=== PATIENT | male | born 1965 | race African-American/Black ===

== ENCOUNTER 2017-04-18 12:08 | Emergency (ER) | payer MEDICAID ==
[~2017-04-18] VITALS: Ht 177.8 cm; Wt 84.0 kg
[2017-04-18] MEDS ORDERED: IPRATROPIUM BROMIDE (0.02%) 0.5MG/2.5ML NEB HHN STA (12:51)
[2017-04-18] MEDS ORDERED: METHYLPREDNISOLONE SOD SUCC 125 MG/2 ML VIAL IV STA (12:51)
[2017-04-18] MEDS ORDERED: ALBUTEROL (0.083%) 2.5MG/3ML NEB HHN SCH ×2 (13:00→15:00)
[2017-04-18] MEDS ORDERED: ALBUTEROL (0.083%) 2.5MG/3ML NEB ONE ×2 (13:07→14:47)
[2017-04-18 13:35] LABS: HEMATOCRIT. 51.2 % (42.0-52.0); HEMOGLOBIN. 17.3 g/dL (14.0-18.0); MEAN CORPUSCULAR HEMOGLOBIN 31.9 pg (28.0-32.0); MEAN CORPUSCULAR VOLUME 94.5 fL (80.0-94.0); MEAN PLATELET VOLUME 8.1 fl (7.4-10.4); PLATELET 227 x1000/uL (130-400); RED BLOOD CELL COUNT 5.42 mill/uL (4.7-6.1)
[2017-04-18 13:48] LABS: CARBON DIOXIDE 26 mEq/L (21-32); CHLORIDE 107 mEq/L (98-107); TROPONIN I < 0.02 ng/mL (0.00-0.04)
[2017-04-18 14:03] LABS: NUCLEATED RED BLOOD CELLS 1 /100 WBC; PLATELET ESTIMATE NORMAL
[2017-04-18 16:31] VITALS: BP 168/98
[2017-04-28] MEDS ORDERED: ALBU6.7H IH (22:51)
== END 2017-04-18 16:43 | disposition home or self-care (01) ==
LOC: ER 14:04 → ENRESERV 17:18 → CANRESERV 17:18 → CANBEDREQ 04-19 00:57
DX: J45.901 Unspecified asthma with (acute) exacerbation (principal); F14.10 Cocaine abuse, uncomplicated
CPT/HCPCS: 36415; 71010; 80053; 83880; 84484; 85025; 94640; 96374; 99291; J2930; J7611; Z7610

== ENCOUNTER 2017-04-25 20:24 | Emergency (ER) | payer MEDICAID ==
[~2017-04-25] VITALS: Ht 177.8 cm; Wt 84.0 kg
[2017-04-25] MEDS ORDERED: ALBUTEROL (0.083%) 2.5MG/3ML NEB HHN STA (20:36)
[2017-04-25] MEDS ORDERED: IPRATROPIUM BROMIDE (0.02%) 0.5MG/2.5ML NEB HHN STA (20:36)
[2017-04-25] MEDS ORDERED: METHYLPREDNISOLONE SOD SUCC 125 MG/2 ML VIAL IV STA (20:36)
[2017-04-25 20:37] VITALS: BP 153/101
[2017-04-25] MEDS ORDERED: SODIUM CHLORIDE 0.9% 1,000 ML IV ONE (20:37)
[2017-04-25] MEDS ORDERED: MAGNESIUM 2 G PREMIX 50 ML IV ONE (20:45)
[2017-04-25 21:08] LABS: HEMATOCRIT. 55.9 % (42.0-52.0); HEMOGLOBIN. 19.2 g/dL (14.0-18.0); MEAN CORPUSCULAR HEMOGLOBIN 32.7 pg (28.0-32.0); MEAN PLATELET VOLUME 8.2 fl (7.4-10.4); PLATELET 228 x1000/uL (130-400); RED BLOOD CELL COUNT 5.88 mill/uL (4.7-6.1); RED CELL DISTRIBUTION WIDTH 14.6 % (11.6-14.6)
[2017-04-25 21:12] LABS: CHLORIDE 106 mEq/L (98-107)
[2017-04-25 21:13] LABS: INR 1.1; PARTIAL THROMBOPLASTIN TIME 28.1 sec (23.4-31.0); PROTHROMBIN TIME 10.9 sec (9.4-11.6)
[2017-04-25 21:17] LABS: CARBON DIOXIDE 26 mEq/L (21-32)
[2017-04-25 21:21] LABS: TROPONIN I < 0.02 ng/mL (0.00-0.04)
[2017-04-25 21:24] LABS: PLATELET ESTIMATE NORMAL
[2017-04-25] MEDS ORDERED: LEVOFLOXACIN 500MG PREMIX 100 ML IV ONE (21:30)
[2017-04-28] MEDS ORDERED: ALBU6.7H IH (22:51)
== END 2017-04-25 22:53 | disposition left against medical advice (07) ==
LOC: ER 20:28 → EDBEDREQ 21:22 → CANRESERV 21:33 → ENRESERV 21:33 → CANBEDREQ 22:41 → ER 22:53
DX: J96.00 Acute respiratory failure, unspecified whether with hypoxia or hypercapnia (principal); J45.901 Unspecified asthma with (acute) exacerbation; F14.10 Cocaine abuse, uncomplicated; F17.200 Nicotine dependence, unspecified, uncomplicated
CPT/HCPCS: 36415; 71010; 80053; 83605; 83880; 84484; 85025; 85610; 85730; 87040; 93005; 94644; 96365; 96368; 96375; 99291; J1956; J2930; J3475; J7030; J7611; 96366

== ENCOUNTER 2017-06-20 09:50 | Emergency (ER) | payer MEDICAID ==
[~2017-06-20] VITALS: Ht 182.9 cm; Wt 90.0 kg
[~2017-06-20 09:50] MED LIST: ALBU6.7H IH; LEVO500T2 PO; TAM75 PO
[2017-06-20 09:54] VITALS: BP 160/98
== END 2017-06-20 13:31 | disposition left against medical advice (07) ==
LOC: ER 10:03
DX: R05 Cough (principal); Z53.21 Procedure and treatment not carried out due to patient leaving prior to being seen by health care provider

== ENCOUNTER 2017-07-30 11:11 | Emergency (ER) | payer MEDICAID ==
[~2017-07-30] VITALS: Ht 177.8 cm; Wt 75.0 kg
[~2017-07-30 11:11] MED LIST changes: -LEVO500T2 PO
[2017-07-30 11:12] VITALS: BP 136/76
[2017-07-30] MEDS ORDERED: METHYLPREDNISOLONE SOD SUCC 125 MG/2 ML VIAL IV STA (11:58)
[2017-07-30] MEDS ORDERED: IPRATROPIUM BROMIDE (0.02%) 0.5MG/2.5ML NEB HHN STA (11:58)
[2017-07-30] MEDS ORDERED: ALBUTEROL (0.083%) 2.5MG/3ML NEB HHN STA (11:58)
[2017-08-29] MEDS ORDERED: FLUT1AER IH (03:06)
== END 2017-07-30 13:22 | disposition left against medical advice (07) ==
LOC: ER 11:11
DX: J44.0 Chronic obstructive pulmonary disease with (acute) lower respiratory infection (principal); J20.9 Acute bronchitis, unspecified
CPT/HCPCS: 93005; 94640; 99283; J7611; Z7610; J2930

== ENCOUNTER 2017-08-06 09:59 | Emergency (ER) | payer MEDICAID ==
[~2017-08-06] VITALS: Ht 177.8 cm; Wt 82.0 kg
[2017-08-06 10:01] VITALS: BP 108/54
== END 2017-08-06 11:07 | disposition left against medical advice (07) ==
LOC: ER 10:55
DX: R06.02 Shortness of breath (principal); Z53.21 Procedure and treatment not carried out due to patient leaving prior to being seen by health care provider

== ENCOUNTER 2017-10-01 09:44 | Emergency (ER) | payer OTHER ==
[~2017-10-01] VITALS: Ht 177.8 cm; Wt 80.0 kg
[~2017-10-01 09:44] MED LIST changes: +FLUT1AER IH
[2017-10-01 10:20] VITALS: BP 122/77
[2017-10-01] MEDS ORDERED: DIPHENHYDRAMINE 25MG CAPSULE PO ONE (11:00)
== END 2017-10-01 11:13 | disposition home or self-care (01) ==
LOC: ER 10:27
DX: B35.4 Tinea corporis (principal); F17.200 Nicotine dependence, unspecified, uncomplicated
CPT/HCPCS: 99282; Q0163

== ENCOUNTER 2018-11-02 21:02 | Emergency (ER) | payer OTHER ==
[~2018-11-02] VITALS: Ht 157.5 cm; Wt 73.0 kg
[2018-11-03 00:48] VITALS: BP 128/73
== END 2018-11-03 01:20 | disposition home or self-care (01) ==
LOC: ER 21:02
DX: M70.21 Olecranon bursitis, right elbow (principal); M25.511 Pain in right shoulder; Y93.89 Activity, other specified
CPT/HCPCS: 99282; A4565

== ENCOUNTER 2018-11-21 16:58 | Inpatient (IN) | payer MEDICAID, OTHER ==
[~2018-11-21] VITALS: Ht 185.4 cm; Wt 72.1 kg
[2018-11-21] MEDS ORDERED: METHYLPREDNISOLONE SOD SUCC 125 MG/2 ML VIAL IV STA (17:23)
[2018-11-21] MEDS ORDERED: MAGNESIUM 2 G PREMIX 50 ML IV STA (17:23)
[2018-11-21] MEDS ORDERED: IPRATROPIUM BROMIDE (0.02%) 0.5MG/2.5ML NEB HHN STA (17:23)
[2018-11-21] MEDS ORDERED: ALBUTEROL (0.083%) 2.5MG/3ML NEB HHN STA (17:23)
[2018-11-21 18:23] LABS: BASOPHILS % 0.6 % (0.0-2.0); EOSINOPHILS % 10.2 % (0.0-5.0); HEMATOCRIT. 35.9 % (42.0-52.0); LYMPHOCYTES % 14.4 % (20.0-50.0); MEAN CORPUSCULAR HEMOGLOBIN 27.6 pg (28.0-32.0); MEAN CORPUSCULAR VOLUME 82.9 fL (80.0-94.0); MEAN PLATELET VOLUME 6.6 fl (7.4-10.4); MONOCYTES % 9.8 % (2.0-8.0); PLATELET 427 x1000/uL (130-400); RED BLOOD CELL COUNT 4.33 mill/uL (4.7-6.1); RED CELL DISTRIBUTION WIDTH 15.1 % (11.6-14.6)
[2018-11-21 18:28] LABS: CHLORIDE 107 mEq/L (98-107)
[2018-11-21] MEDS ORDERED: LEVOFLOXACIN 750MG PREMIX 150 ML IV ONE (21:00)
[2018-11-21] MEDS ORDERED: SODIUM CHLORIDE 0.9% 1000ML BAG (SEPSIS BOLUS) IV ONE (21:00)
[2018-11-21] MEDS ORDERED: HYDROCODONE/ACETAMINOPHEN 5/325MG TABLET PO ONE (21:00)
[2018-11-21] MEDS ORDERED: ONDANSETRON HCL 4MG/2ML INJ IV PRN (22:30)
[2018-11-21] MEDS ORDERED: MAGNESIUM/ALUMINUM HYDROXIDE/SIMETHICONE 30ML UDC PO PRN (22:30)
[2018-11-21] MEDS ORDERED: DOCUSATE SODIUM 100MG CAPSULE PO PRN (22:30)
[2018-11-21] MEDS ORDERED: ACETAMINOPHEN 325MG TABLET PO PRN (22:30)
[2018-11-21] MEDS ORDERED: CLONIDINE 0.1MG TABLET PO PRN (22:30)
[2018-11-21 23:31] LABS: BG CARBOXYHEMOGLOBIN 0.7 % (0.5-1.5); BG DEOXYHEMOGLOBIN 6.1 % (0.0-5.0); BG FRACTION INSPIRED OXYGEN 21; BG HCO3 ACT 23.1 mmol/L (22.0-26.0); BG METHEMOGLOBIN 0.4 % (0.0-1.5); BG OXYGEN SATURATION 93.8 % (92.0-98.5); BG OXYHEMOGLOBIN 92.8 % (94.0-97.0); BG PCO2 36.5 mmHg (35.0-45.0); BG PH 7.419 (7.350-7.450); BG PO2 71.8 mmHg (75.0-100.0); BG SAMPLE SITE RIGHT BRACHIAL; BG TOTAL HEMOGLOBIN 12.3 g/dL (12.0-18.0); BG VENT MODE ROOM AIR
[2018-11-22] MEDS ORDERED: CEFTRIAXONE 1 G PREMIX 50 ML IV SCH ×2 (01:00→01:45)
[2018-11-22 01:30] VITALS: BP 134/74
[2018-11-22 02:25] VITALS: BP 127/57
[2018-11-22] MEDS ORDERED: AZITHROMYCIN 500 MG in DEXT 5% WATER 250 ML IV SCH (03:00)
[2018-11-22] MEDS: CEFTRIAXONE 1 G PREMIX 50 ML IV SCH (04:27)
[2018-11-22] MEDS: METHYLPREDNISOLONE SOD SUCC 40 MG/ML VIAL IV SCH ×3 (06:00→21:18)
[2018-11-22 07:33] LABS: HEMATOCRIT. 34.2 % (42.0-52.0); HEMOGLOBIN. 11.4 g/dL (14.0-18.0); MEAN CORPUSCULAR HEMOGLOBIN 27.4 pg (28.0-32.0); MEAN CORPUSCULAR VOLUME 82.4 fL (80.0-94.0); MEAN PLATELET VOLUME 6.8 fl (7.4-10.4); PLATELET 425 x1000/uL (130-400); RED BLOOD CELL COUNT 4.15 mill/uL (4.7-6.1)
[2018-11-22 07:39] LABS: CHLORIDE 110 mEq/L (98-107)
[2018-11-22 07:51] LABS: HDL CHOLESTEROL 45 mg/dL (40-59)
[2018-11-22 07:53] LABS: LDL CHOLESTEROL 68 mg/dL (5-100)
[2018-11-22 07:54] LABS: CREATINE KINASE 43 IU/L (39-308)
[2018-11-22 07:59] LABS: CREATINE KINASE MB FRACTION < 1.0 ng/mL (0.5-3.6)
[2018-11-22] MEDS: BUDESONIDE 0.5MG/2ML NEB HHN SCH (08:05)
[2018-11-22 08:12] VITALS: BP 125/63
[2018-11-22 08:55] LABS: PLATELET ESTIMATE NORMAL
[2018-11-22] MEDS: ENOXAPARIN 40MG/0.4ML SYR SUBCUT SCH (09:00)
[2018-11-22 11:41] LABS: T4 FREE 1.07 ng/dL (0.76-1.46)
[2018-11-22 12:53] VITALS: BP 133/72
[2018-11-22 16:21] LABS: HEPATITIS B SURFACE ANTIGEN NEGATIVE
[2018-11-22 16:26] VITALS: BP 126/82
[2018-11-22 16:29] LABS: HEPATITIS A AB IGM NEGATIVE (NEGATIVE)
[2018-11-22] MEDS: HYDROCODONE/ACETAMINOPHEN 5/325MG TABLET PO PRN (16:29)
[2018-11-22] MEDS ORDERED: KETOROLAC 15MG/ML VIAL IV PRN (18:30)
[2018-11-22 18:39] LABS: CREATINE KINASE 47 IU/L (39-308)
[2018-11-22 18:41] LABS: CREATINE KINASE MB FRACTION < 1.0 ng/mL (0.5-3.6)
[2018-11-22 20:00] VITALS: BP 137/81
[2018-11-23] VITALS: BP 132/79
[2018-11-23] MEDS: CEFTRIAXONE 1 G PREMIX 50 ML IV SCH (01:14)
[2018-11-23] MEDS: HYDROCODONE/ACETAMINOPHEN 5/325MG TABLET PO PRN ×3 (01:14→21:07)
[2018-11-23] MEDS: AZITHROMYCIN 500 MG in DEXT 5% WATER 250 ML IV SCH (02:40)
[2018-11-23 04:00] VITALS: BP 123/83
[2018-11-23] MEDS: METHYLPREDNISOLONE SOD SUCC 40 MG/ML VIAL IV SCH ×2 (06:24→13:48)
[2018-11-23] MEDS: PANTOPRAZOLE 40MG DR TABLET PO SCH (06:26)
[2018-11-23 06:45] LABS: HEMATOCRIT. 38.3 % (42.0-52.0); HEMOGLOBIN. 12.6 g/dL (14.0-18.0); MEAN CORPUSCULAR HEMOGLOBIN 27.5 pg (28.0-32.0); MEAN CORPUSCULAR VOLUME 83.5 fL (80.0-94.0); MEAN PLATELET VOLUME 7.2 fl (7.4-10.4); PLATELET 463 x1000/uL (130-400); RED BLOOD CELL COUNT 4.59 mill/uL (4.7-6.1); RED CELL DISTRIBUTION WIDTH 14.8 % (11.6-14.6)
[2018-11-23 06:51] LABS: CHLORIDE 105 mEq/L (98-107)
[2018-11-23 07:05] LABS: TOTAL IRON BINDING CAPACITY 247 ug/dL (250-450)
[2018-11-23 08:00] VITALS: BP 139/85
[2018-11-23] MEDS: ENOXAPARIN 40MG/0.4ML SYR SUBCUT SCH (08:25)
[2018-11-23 12:00] VITALS: BP 111/74
[2018-11-23] MEDS ORDERED: ETHYL CHLORIDE CAN TOP NR (12:30)
[2018-11-23] MEDS ORDERED: BUPIVACAINE HCL/PF 0.5% (5MG/ML) 10ML INFIL NR (12:30)
[2018-11-23] MEDS ORDERED: LIDOCAINE HCL 1% 20ML VIAL (Pyxis) INJ INFIL NR (12:30)
[2018-11-23] MEDS ORDERED: TRIAMCINOLONE ACETONIDE 40MG/ML 1ML VIAL IM NR (12:30)
[2018-11-23 16:00] VITALS: BP 137/82
[2018-11-23 20:00] VITALS: BP 122/67
[2018-11-24] VITALS: BP 109/59
[2018-11-24] MEDS: CEFTRIAXONE 1 G PREMIX 50 ML IV SCH (02:26)
[2018-11-24] MEDS: AZITHROMYCIN 500 MG in DEXT 5% WATER 250 ML IV SCH (03:11)
[2018-11-24 03:50] LABS: PLATELET ESTIMATE SLIGHTL
[2018-11-24 04:00] VITALS: BP 125/78
[2018-11-24] MEDS: PANTOPRAZOLE 40MG DR TABLET PO SCH (06:38)
[2018-11-24 08:00] VITALS: BP 126/78
[2018-11-24] MEDS: BUDESONIDE 0.5MG/2ML NEB HHN SCH (08:05)
[2018-11-24 08:54] LABS: BASOPHILS % 0.3 % (0.0-2.0); EOSINOPHILS % 0.1 % (0.0-5.0); HEMATOCRIT. 37.6 % (42.0-52.0); HEMOGLOBIN. 12.3 g/dL (14.0-18.0); LYMPHOCYTES % 8.6 % (20.0-50.0); MEAN CORPUSCULAR HEMOGLOBIN 27.2 pg (28.0-32.0); MEAN CORPUSCULAR VOLUME 82.9 fL (80.0-94.0); MEAN PLATELET VOLUME 7.2 fl (7.4-10.4); PLATELET 489 x1000/uL (130-400); RED BLOOD CELL COUNT 4.54 mill/uL (4.7-6.1); RED CELL DISTRIBUTION WIDTH 15.1 % (11.6-14.6)
[2018-11-24] MEDS: HYDROCODONE/ACETAMINOPHEN 5/325MG TABLET PO PRN (08:59)
[2018-11-24] MEDS: ENOXAPARIN 40MG/0.4ML SYR SUBCUT SCH (09:00)
[2018-11-24] MEDS ORDERED: PREDNISONE 20MG TABLET PO SCH (09:00)
[2018-11-24 09:20] LABS: CHLORIDE 104 mEq/L (98-107)
[2018-11-24] MEDS: IPRATROPIUM/ALBUTEROL 0.5-3(2.5)MG/3ML NEB INH PRN ×2 (10:55→15:42)
[2018-11-24 12:00] VITALS: BP 128/74
[2018-11-24 16:00] VITALS: BP 126/65
[2018-11-24] MEDS ORDERED: POTASSIUM CHLORIDE 20MEQ TABLET SR PO NR (17:00)
[2018-11-24] MEDS ORDERED: P20 PO (17:08)
[2018-11-24] MEDS ORDERED: IBUP-2029 MT (17:08)
[2018-11-24] MEDS ORDERED: PANT40TA4 MT (17:08)
[2018-11-24] MEDS ORDERED: ACET-2853 MT (17:08)
[2018-11-24] MEDS ORDERED: AZIT500T5 MT (17:08)
[2018-11-24 17:50] VITALS: BP 126/65
[2018-11-25] MEDS ORDERED: FAMOTIDINE 20MG TABLET PO SCH (09:00)
[2018-11-26 04:20] LABS: HIV SCREEN 4G Non Reactive (Non Reactive)
== END 2018-11-24 18:45 | disposition home or self-care (01) | DRG 140 ==
LOC: ER 16:58 → 6WST 21:01 → ENRESERV 21:59 → 7WST 11-24 17:45
PROVIDERS: ADMIT Internal Medicine; ATTEND Internal Medicine
DX: J44.0 Chronic obstructive pulmonary disease with (acute) lower respiratory infection (principal); J18.9 Pneumonia, unspecified organism; D72.1 Eosinophilia; M75.51 Bursitis of right shoulder; D63.8 Anemia in other chronic diseases classified elsewhere; F17.210 Nicotine dependence, cigarettes, uncomplicated; M70.31 Other bursitis of elbow, right elbow; Z59.0 Homelessness; Z79.899 Other long term (current) drug therapy; M19.011 Primary osteoarthritis, right shoulder
CPT/HCPCS: 36415; 36600; 71045; 73030; 73221; 80048; 80061; 82375; 82550; 82553; 82728; 82805; 83540; 83550; 83605; 83735; 83880; 84145; 84439; 84443; 84481; 84484; 86705; 86709; 86803; 87340; 87389; 93005; 93970; 93971; 94644; 96374; 97166; 99285; J0456; J0696; J1650; J1956; J2920; J2930; J3301; J3475; J3490; J7030; J7050; J7060; J7512; J7611; J7620; J7626

== ENCOUNTER 2019-01-10 12:45 | Inpatient (IN) | payer MEDICAID, OTHER ==
[~2019-01-10] VITALS: Ht 177.8 cm; Wt 77.1 kg
[~2019-01-10 12:45] MED LIST changes: +ACET-2853 MT; +AZIT500T5 MT; +IBUP-2029 MT; +P20 PO; +PANT40TA4 MT; -TAM75 PO
[2019-01-10] MEDS ORDERED: METHYLPREDNISOLONE SOD SUCC 125 MG/2 ML VIAL IV STA (14:03)
[2019-01-10] MEDS ORDERED: MORPHINE SULFATE 4 MG/ML CPJ (NOT FOR IM USE) IV STA (14:03)
[2019-01-10] MEDS ORDERED: SODIUM CHLORIDE 0.9% 1,000 ML IV ONE (14:03)
[2019-01-10] MEDS ORDERED: ONDANSETRON HCL 4MG/2ML INJ IV STA (14:03)
[2019-01-10 14:05] LABS: BASOPHILS % 1.2 % (0.0-2.0); HEMATOCRIT. 38.4 % (42.0-52.0); HEMOGLOBIN. 12.8 g/dL (14.0-18.0); LYMPHOCYTES % 13.9 % (20.0-50.0); MEAN CORPUSCULAR HEMOGLOBIN 26.9 pg (28.0-32.0); MEAN PLATELET VOLUME 6.8 fl (7.4-10.4); NEUTROPHILS % 62.9 % (40.0-76.0); PLATELET 441 x1000/uL (130-400); RED BLOOD CELL COUNT 4.74 mill/uL (4.7-6.1); RED CELL DISTRIBUTION WIDTH 17.2 % (11.6-14.6)
[2019-01-10 14:10] LABS: CHLORIDE 103 mEq/L (98-107)
[2019-01-10] MEDS ORDERED: LEVOFLOXACIN 500MG PREMIX 100 ML IV ONE (14:15)
[2019-01-10] MEDS ORDERED: IPRATROPIUM/ALBUTEROL 0.5-3(2.5)MG/3ML NEB HHN ONE (14:15)
[2019-01-10 14:48] LABS: BG BASE EXCESS 0.1 mmol/L (-2.0-2.0); BG CARBOXYHEMOGLOBIN 0.9 % (0.5-1.5); BG DEOXYHEMOGLOBIN 7.1 % (0.0-5.0); BG FRACTION INSPIRED OXYGEN 21; BG HCO3 ACT 23.1 mmol/L (22.0-26.0); BG METHEMOGLOBIN 0.2 % (0.0-1.5); BG OXYGEN SATURATION 92.8 % (92.0-98.5); BG OXYHEMOGLOBIN 91.8 % (94.0-97.0); BG PCO2 32.4 mmHg (35.0-45.0); BG PH 7.471 (7.350-7.450); BG PO2 63.5 mmHg (75.0-100.0); BG SAMPLE SITE RIGHT BRACHIAL; BG TOTAL HEMOGLOBIN 12.6 g/dL (12.0-18.0); BG VENT MODE ROOM AIR
[2019-01-10 15:30] LABS: ETHANOL BLOOD < 10 mg/dL
[2019-01-10 15:31] LABS: *AMPHETAMINES SCREEN URINE NEGATIVE (NEGATIVE); *BENZODIAZEPINES SCREEN URINE NEGATIVE (NEGATIVE)
[2019-01-10 15:32] LABS: *COCAINE SCREEN URINE PRESUMTIVE POSITIVE (NEGATIVE); CANNABINOID URINE SCREEN PRESUMTIVE POSITIVE (NEGATIVE); METHADONE URINE SCREEN NEGATIVE (NEGATIVE); OPIATES URINE SCREEN NEGATIVE (NEGATIVE); PHENCYCLIDINE URINE SCREEN NEGATIVE (NEGATIVE)
[2019-01-10 15:34] LABS: *BARBITURATES SCREEN URINE NEGATIVE (NEGATIVE)
[2019-01-10 15:38] LABS: CREATINE KINASE 40 IU/L (39-308)
[2019-01-10 15:40] LABS: CREATINE KINASE MB FRACTION < 1.0 ng/mL (0.5-3.6)
[2019-01-10 20:55] VITALS: BP 111/72
[2019-01-10 21:00] VITALS: BP 111/72
[2019-01-11] VITALS: BP 124/73
[2019-01-11] MEDS ORDERED: ACETAMINOPHEN 325MG TABLET PO PRN (00:45)
[2019-01-11] MEDS ORDERED: ONDANSETRON HCL 4MG/2ML INJ IV PRN (00:45)
[2019-01-11] MEDS ORDERED: ZOLPIDEM TARTRATE 5MG TABLET PO PRN (00:45)
[2019-01-11] MEDS: HYDROCODONE/ACETAMINOPHEN 5/325MG TABLET PO PRN ×2 (02:51→22:03)
[2019-01-11 04:00] VITALS: BP 126/76
[2019-01-11] MEDS: PANTOPRAZOLE 40MG DR TABLET PO SCH (06:11)
[2019-01-11] MEDS: METHYLPREDNISOLONE SOD SUCC 40 MG/ML VIAL IV SCH ×3 (06:11→21:33)
[2019-01-11 06:34] LABS: BASOPHILS % 0.2 % (0.0-2.0); EOSINOPHILS % 0.1 % (0.0-5.0); HEMATOCRIT. 35.8 % (42.0-52.0); HEMOGLOBIN. 11.7 g/dL (14.0-18.0); LYMPHOCYTES % 7.5 % (20.0-50.0); MEAN CORPUSCULAR HEMOGLOBIN 26.5 pg (28.0-32.0); MEAN CORPUSCULAR VOLUME 80.9 fL (80.0-94.0); MONOCYTES % 5.9 % (2.0-8.0); NEUTROPHILS % 86.3 % (40.0-76.0); PLATELET 458 x1000/uL (130-400); RED BLOOD CELL COUNT 4.42 mill/uL (4.7-6.1); RED CELL DISTRIBUTION WIDTH 16.8 % (11.6-14.6)
[2019-01-11 06:35] LABS: CHLORIDE 103 mEq/L (98-107)
[2019-01-11 06:56] LABS: CREATINE KINASE 41 IU/L (39-308)
[2019-01-11 06:58] LABS: CREATINE KINASE MB FRACTION < 1.0 ng/mL (0.5-3.6)
[2019-01-11 08:00] VITALS: BP 127/69
[2019-01-11] MEDS: ENOXAPARIN 40MG/0.4ML SYR SUBCUT SCH (09:00)
[2019-01-11 12:00] VITALS: BP 119/73
[2019-01-11] MEDS: IPRATROPIUM/ALBUTEROL 0.5-3(2.5)MG/3ML NEB HHN SCH ×3 (14:30→20:03)
[2019-01-11] MEDS: BUDESONIDE 0.5MG/2ML NEB HHN SCH ×2 (14:30→20:03)
[2019-01-11 16:00] VITALS: BP_SYST 126; BP_SYST 128; BP_DIAS 70; BP_DIAS 78
[2019-01-11 20:00] VITALS: BP 111/56
[2019-01-11] MEDS: LEVOFLOXACIN 750MG PREMIX 150 ML IV SCH (20:50)
[2019-01-12] VITALS: BP 128/68
[2019-01-12] MEDS: IPRATROPIUM/ALBUTEROL 0.5-3(2.5)MG/3ML NEB HHN SCH ×6 (00:42→21:15)
[2019-01-12 04:00] VITALS: BP 121/73
[2019-01-12] MEDS: PANTOPRAZOLE 40MG DR TABLET PO SCH (06:19)
[2019-01-12] MEDS: METHYLPREDNISOLONE SOD SUCC 40 MG/ML VIAL IV SCH ×3 (06:19→21:43)
[2019-01-12 08:00] VITALS: BP 117/60
[2019-01-12] MEDS: BUDESONIDE 0.5MG/2ML NEB HHN SCH (08:14)
[2019-01-12] MEDS: HYDROCODONE/ACETAMINOPHEN 5/325MG TABLET PO PRN ×2 (08:42→15:04)
[2019-01-12] MEDS: ENOXAPARIN 40MG/0.4ML SYR SUBCUT SCH (08:48)
[2019-01-12 09:42] LABS: HEMATOCRIT. 36.1 % (42.0-52.0); HEMOGLOBIN. 11.7 g/dL (14.0-18.0); MEAN CORPUSCULAR HEMOGLOBIN 26.2 pg (28.0-32.0); MEAN CORPUSCULAR VOLUME 80.8 fL (80.0-94.0); PLATELET 476 x1000/uL (130-400); RED BLOOD CELL COUNT 4.47 mill/uL (4.7-6.1); RED CELL DISTRIBUTION WIDTH 16.5 % (11.6-14.6)
[2019-01-12 09:58] LABS: CHLORIDE 104 mEq/L (98-107)
[2019-01-12 12:00] VITALS: BP 119/69
[2019-01-12 16:00] VITALS: BP 106/53
[2019-01-12 20:00] VITALS: BP 131/69
[2019-01-12] MEDS: LEVOFLOXACIN 750MG PREMIX 150 ML IV SCH (20:15)
[2019-01-12 22:55] LABS: PLATELET ESTIMATE SLIGHTLY INCREASED
[2019-01-13] VITALS: BP 127/70
[2019-01-13] MEDS: HYDROCODONE/ACETAMINOPHEN 5/325MG TABLET PO PRN ×2 (02:22→21:26)
[2019-01-13 04:00] VITALS: BP 119/73
[2019-01-13] MEDS: IPRATROPIUM/ALBUTEROL 0.5-3(2.5)MG/3ML NEB HHN SCH ×5 (04:00→16:54)
[2019-01-13 08:00] VITALS: BP 132/74
[2019-01-13] MEDS: BUDESONIDE 0.5MG/2ML NEB HHN SCH (08:17)
[2019-01-13 08:59] LABS: HEMATOCRIT. 35.3 % (42.0-52.0); HEMOGLOBIN. 11.7 g/dL (14.0-18.0); MEAN CORPUSCULAR HEMOGLOBIN 26.9 pg (28.0-32.0); MEAN CORPUSCULAR VOLUME 81.2 fL (80.0-94.0); PLATELET 474 x1000/uL (130-400); RED BLOOD CELL COUNT 4.35 mill/uL (4.7-6.1); RED CELL DISTRIBUTION WIDTH 16.7 % (11.6-14.6)
[2019-01-13] MEDS: FAMOTIDINE 20MG TABLET PO SCH ×2 (09:00→20:46)
[2019-01-13] MEDS: ENOXAPARIN 40MG/0.4ML SYR SUBCUT SCH (09:00)
[2019-01-13 09:14] LABS: CHLORIDE 104 mEq/L (98-107)
[2019-01-13 11:11] LABS: PROTHROMBIN TIME 10.7 sec (9.6-11.0)
[2019-01-13 12:00] VITALS: BP 110/58
[2019-01-13] MEDS: METHYLPREDNISOLONE SOD SUCC 40 MG/ML VIAL IV SCH ×2 (13:47→13:53)
[2019-01-13 13:53] LABS: PLATELET ESTIMATE INCREASED
[2019-01-13 16:00] VITALS: BP 168/78
[2019-01-13] MEDS ORDERED: P20 MT (18:58)
[2019-01-13] MEDS: AMLODIPINE 5MG TABLET PO SCH (19:15)
[2019-01-13 20:00] VITALS: BP 125/75
[2019-01-13] MEDS: LEVOFLOXACIN 750MG PREMIX 150 ML IV SCH (20:44)
[2019-01-14] VITALS: BP 116/61
[2019-01-14 04:00] VITALS: BP 127/79
[2019-01-14] MEDS: BUDESONIDE 0.5MG/2ML NEB HHN SCH (07:31)
[2019-01-14] MEDS: IPRATROPIUM/ALBUTEROL 0.5-3(2.5)MG/3ML NEB HHN SCH ×4 (07:32→21:09)
[2019-01-14 08:00] VITALS: BP 126/71
[2019-01-14] MEDS: ENOXAPARIN 40MG/0.4ML SYR SUBCUT SCH ×2 (08:12→08:17)
[2019-01-14] MEDS: PREDNISONE 20MG TABLET PO SCH (08:13)
[2019-01-14] MEDS: FAMOTIDINE 20MG TABLET PO SCH ×3 (08:13→21:00)
[2019-01-14] MEDS: HYDROCODONE/ACETAMINOPHEN 5/325MG TABLET PO PRN ×2 (08:14→14:57)
[2019-01-14] MEDS: AMLODIPINE 5MG TABLET PO SCH ×2 (08:14→08:17)
[2019-01-14 12:00] VITALS: BP 111/63
[2019-01-14 16:00] VITALS: BP 115/59
[2019-01-14] MEDS: LEVOFLOXACIN 750MG PREMIX 150 ML IV SCH (19:39)
[2019-01-14 20:00] VITALS: BP 101/50
[2019-01-15] VITALS: BP 109/53
[2019-01-15] MEDS: IPRATROPIUM/ALBUTEROL 0.5-3(2.5)MG/3ML NEB HHN SCH ×3 (00:36→09:20)
[2019-01-15 04:00] VITALS: BP 114/73
[2019-01-15] MEDS: HYDROCODONE/ACETAMINOPHEN 5/325MG TABLET PO PRN (04:20)
[2019-01-15 06:59] LABS: TOTAL IRON BINDING CAPACITY 234 ug/dL (250-450)
[2019-01-15 08:00] VITALS: BP 123/78
[2019-01-15] MEDS: PREDNISONE 20MG TABLET PO SCH (09:00)
[2019-01-15] MEDS: FAMOTIDINE 20MG TABLET PO SCH (09:00)
[2019-01-15] MEDS: AMLODIPINE 5MG TABLET PO SCH (09:00)
[2019-01-15] MEDS: ENOXAPARIN 40MG/0.4ML SYR SUBCUT SCH (09:00)
[2019-01-15 09:50] VITALS: BP 126/75
[2019-01-15 12:00] VITALS: BP 121/73
== END 2019-01-15 12:00 | disposition home or self-care (01) | DRG 139 ==
LOC: ER 12:45 → EDBEDREQ 14:43 → 8WST 15:39 → EDBEDREQTM 15:46 → EDBEDREQ 15:46 → ENRESERV 20:17
PROVIDERS: ADMIT Internal Medicine; ATTEND Internal Medicine
DX: J18.9 Pneumonia, unspecified organism (principal); J96.00 Acute respiratory failure, unspecified whether with hypoxia or hypercapnia; E43 Unspecified severe protein-calorie malnutrition; J44.1 Chronic obstructive pulmonary disease with (acute) exacerbation; F12.90 Cannabis use, unspecified, uncomplicated; D64.9 Anemia, unspecified; J20.9 Acute bronchitis, unspecified; F17.210 Nicotine dependence, cigarettes, uncomplicated; F14.10 Cocaine abuse, uncomplicated; R91.8 Other nonspecific abnormal finding of lung field; J44.0 Chronic obstructive pulmonary disease with (acute) lower respiratory infection; Z71.6 Tobacco abuse counseling; Z71.51 Drug abuse counseling and surveillance of drug abuser; Z68.24 Body mass index [BMI] 24.0-24.9, adult
CPT/HCPCS: 36415; 36600; 71045; 71250; 80048; 80305; 80320; 82375; 82550; 82553; 82728; 82805; 83540; 83550; 83605; 83735; 83880; 84145; 84484; 93005; 93970; 94640; 96365; 96366; 96375; 97162; 99285; J1650; J1956; J2270; J2405; J2920; J2930; J7030; J7040; J7512; J7620; J7626; G0480